=== PATIENT | male | born 1990 | race Caucasian/White ===

== ENCOUNTER 2025-01-10 11:41 | Emergency (ER) | payer OTHER, SELFPAY ==
[2025-01-10 11:56] VITALS: BP 119/83; PULSE 88; RESP 16; TEMP 36.6; O2SAT 99
--- NOTE | 2025-01-10 12:09 | ED.WOUNDLAC ---
HPI - Wound/Laceration General Chief Complaint: Wound/Laceration Stated Complaint: L EYEBROW LACERATION Time Seen by Provider: 01/10/25 12:09 Source: patient Mode of arrival: ambulatory Limitations: no limitations History of Present Illness HPI narrative: 34 yo M presents with laceration to L eyebrow. Hit with retention wire while at work. No injury to eye. No LOC. Ambulatory wtih steady gait. All systems reviewed and negative except as noted above. Related Data Home Medications ?Medication ?Instructions ?Recorded ?Confirmed ?Last Taken ?Type cetirizine 10 mg tablet (24Hour 10 mg PO DAILY 01/10/25 01/10/25 Unknown History Allergy) esomeprazole magnesium 40 mg mg 01/10/25 Unknown History capsule,delayed release lisinopril 20 mg tablet mg 01/10/25 Unknown History Allergies Allergy/AdvReac Type Severity Reaction Status Date / Time ketorolac (From Toradol) Allergy Severe Anaphylaxis Verified 01/10/25 12:13 PMFSH Comments At time of signature, agree with nursing past medical, surgical, social and family history. There is no relevant family history pertinent to the presenting complaint. Exam Narrative: GENERAL: This is a well-nourished, well-developed patient, in no apparent distress. HEAD: normocephalic, atraumatic. EYES: PERRL. Sclera clear/white. Vision is grossly intact. EARS: External ears normal NOSE: External nose normal NECK: Neck supple, non-tender without lymphadenopathy, masses or thyromegaly. CARDIOVASCULAR: Regular rate and rhythm without murmurs, gallops, or rubs. RESPIRATORY: Clear to auscultation. Breath sounds equal bilaterally. No wheezes, rales, or rhonchi. SKIN: warm, Dry, intact with no suspicious lesions or rash, good texture and turgor. 1 cm laceration to L eyebrow. Bleeding controlled. NEURO: awake, alert, and oriented to person, place and time. There were no obvious focal neurologic abnormalities. EXTREMITIES: No joint tenderness, effusion, or edema noted. Course Course Level of Care: Express Care Visit Vital Signs Vital signs: Vital Signs Temperature 36.6 C 01/10/25 11:56 Pulse Rate 88 01/10/25 11:56 Respiratory Rate 16 01/10/25 11:56 Blood Pressure 119/83 01/10/25 11:56 Pulse Oximetry 99 01/10/25 11:56 Temperature 36.6 C 01/10/25 11:56 Pulse Rate 88 01/10/25 11:56 Respiratory Rate 16 01/10/25 11:56 Blood Pressure 119/83 01/10/25 11:56 Pulse Oximetry 99 01/10/25 11:56 reviewed Procedures Laceration Laceration 1: Date: 01/10/25 Time: 12:15 Site: face (eyebrow) Side (If applicable): left Size (cm): 1 Description: linear ====== Skin Level ====== Skin layer closed with: dermabond ====== Subcutaneous Layer ====== ====== Muscle Layer ====== ====== Tendon Layer ====== MDM - Wound/Laceration MDM Narrative Medical decision making narrative: laceration to L eyebrow repaired with skin adhesive. wound edges approximate. pt tolerated well Differential Diagnosis Differential diagnosis: Likely laceration Discharge Plan Discharge Clinical Impression: Laceration of eyebrow, left Qualifiers: Encounter type: initial encounter Qualified Code(s): S01.112A - Laceration without foreign body of left eyelid and periocular area, initial encounter Patient Disposition: Home Condition: Stable Instructions: Facial Laceration (ED) Additional Instructions: Keep skin adhesive dry. If it becomes wet, pat dry with towel. Let skin adhesive fall off on it's own. Do not pick or scrub at skin adhesive. Patient Language: Faroese Prescriptions: No Action lisinopril 20 mg tablet esomeprazole magnesium 40 mg capsule,delayed release(DR/EC) cetirizine [24Hour Allergy] 10 mg tablet 10 mg PO DAILY Follow-up/Referrals: [facility] [Primary Care Provider, Unknown] Time of Disposition: 12:25
[2025-01-10] MEDS: TETANUS,DIPHTHERIA,AC PERTUSSIS ADULT (0.5 ML) BOOSTRIX IM (12:26)
== END 2025-01-10 12:33 | disposition home or self-care (01) ==
PROVIDERS: Emergency Provider Nurse Practitioner Family
DX: S01.112A Laceration without foreign body of left eyelid and periocular area, initial encounter (principal); W22.8XXA Striking against or struck by other objects, initial encounter; Y99.0 Civilian activity done for income or pay; Z23 Encounter for immunization; I10 Essential (primary) hypertension; Z86.711 Personal history of pulmonary embolism
CPT/HCPCS: 12011; 90471; 90715; 99202; G0463